=== PATIENT | male | born 1970 | race Caucasian/White ===

== ENCOUNTER 2021-02-23 08:17 | Emergency (ER) | payer OTHER ==
[2021-02-23 08:21] VITALS: RESP 18
[2021-02-23] MEDS ORDERED: KETOROLAC 15 MG/ML 1 ML VIAL IVP STA (08:34)
[2021-02-23] MEDS ORDERED: SODIUM CHLORIDE 0.9% 1,000 ML IV STA (08:34)
[2021-02-23] MEDS ORDERED: ONDANSETRON 4 MG/2 ML VIAL IVP STA (08:34)
[2021-02-23 08:58] LABS: Basophils % (A) 0 %; Eosinophils # (A) 0.1 k/uL (0-0.7); Eosinophils % (A) 1 %; HCT 47.3 % (39.0-53.0); HGB 16.7 gm/dL (13.0-17.5); Lymphocytes # (A) 1.3 k/uL (1.0-4.8); Lymphocytes % (A) 12 %; MCHC 35.3 g/dL (31.0-37.0); MCV 87.9 fL (80.0-100.0); Mean Platelet Volume 7.6; Monocytes # (A) 0.7 k/uL (0-1.0); Monocytes % (A) 6 %; Neutrophils # (A) 8.9 k/uL (1.3-7.7); Neutrophils % (A) 80 %; Platelet Count 196 k/uL (150-450); RBC 5.39 m/uL (4.30-5.90); RDW 12.7 % (11.5-15.5); WBC 11.1 k/uL (3.8-10.6)
[2021-02-23 09:07] LABS: Albumin 4.3 g/dL (3.5-5.0); Calcium 9.6 mg/dL (8.4-10.2); Potassium 4.8 mmol/L (3.5-5.1); Total Bilirubin 1.2 mg/dL (0.2-1.3); Total Protein 7.5 g/dL (6.3-8.2)
--- NOTE | 2021-02-23 09:50 | CT ---
EXAMINATION TYPE: CT abdomen pelvis w con DATE OF EXAM: 02/23/2021 COMPARISON: None HISTORY: Right sided flank pain with nausea and constipation for [address] DLP: 1509.2 mGycm Automated exposure control for dose reduction was used. CONTRAST: CT scan of the abdomen pelvis is performed with IV Contrast, patient injected with 100 mL of Isovue 3 00. FINDINGS- LUNG BASES-subsegmental changes at both lung bases most typical of atelectasis. 3 mm right lower lobe nodule seen 2 small to characterize. Trace of pericardial fluid noted. LIVER/GB-low attenuation in the liver is nonspecific but most typical of hepatic steatosis. PANCREAS- No gross abnormality is seen. SPLEEN- No gross abnormality is seen. ADRENALS- No gross abnormality is seen. KIDNEYS/BLADDER-there is mild right hydronephrosis with a right renal pelvic calcifications seen keila uring 6 mm. Additional 6 mm lower pole right renal calcification noted. Left kidney demonstrates no e vidence of hydronephrosis. Bladder wall mildly thickened likely related to incomplete distention and there is heterogeneous pattern to the prostate and seminal vesicles which could be correlated clinica lly. Subcentimeter hypodensity within the right kidney too small to characterize.. BOWEL-bowel gas pattern is nonspecific with no obstruction. Appendix not identified with certainty. N o inflammatory changes noted in the right lower quadrant.. LYMPH NODES- No greater than 1cm abdominal or pelvic lymph nodes areappreciated. OSSEOUS STRUCTURES-hypertrophic and degenerative changes of the spine. OTHER- aorta of normal caliber. IMPRESSION- 1. Mild right hydronephrosis secondary to a right UPJ calcification measuring 6 mm. Additional 6 mm l ower pole right renal calculus. There is also reduced enhancement of the right kidney relative to the left which may be secondary to obstructive nephropathy. Correlate clinically. 2. Prostate and seminal vesicles are somewhat lobulated and heterogeneous correlate clinically. 3. Hepatic steatosis.
--- NOTE | 2021-02-23 10:11 | ED ---
General Adult HPI - General Chief complaint: Dizziness Stated complaint: lower back pain, dizziness Time Seen by Provider: 02/23/21 08:23 Source: patient, RN notes reviewed Mode of arrival: ambulatory Limitations: no limitations - History of Present Illness Initial comments: 50-year-old male presents emergency department tingling right flank pain. Desirae ent states that since she days ago states it's not getting any better. She states she started feeling nauseated, lightheaded from the pain. Patient states that he's never had any like this before states pain really does not move anywhere daily worse with certain movements. No chest pain shortness breath no current blurred vision or any focal weakness. No dysuria no hematuria no diarrhea no constipation - Related Data Home Medications Medication Instructions Recorded Confirmed Colchicine [Colcrys] 0.6 mg PO BID 02/23/21 02/23/21 Previous Rx's Medication Instructions Recorded Ketorolac [Toradol] 10 mg PO Q8HR #15 tab 02/23/21 Ondansetron Odt [Zofran Odt] 4 mg PO Q8HR PRN #10 tab 02/23/21 Tamsulosin [Flomax] 0.4 mg PO DAILY #7 cap 02/23/21 Allergies Allergy/AdvReac Type Severity Reaction Status Date / Time No Known Allergies Allergy Verified 02/23/21 09:59 Review of Systems ROS Statement: Those systems with pertinent positive or pertinent negative responses have been documented in the HPI. ROS Other: All systems not noted in ROS Statement are negative. Past Medical History Additional Past Medical History / Comment(s): gout History of Any Multi-Drug Resistant Organisms: None Reported Past Surgical History: Orthopedic Surgery Past Psychological History: No Psychological Hx Reported Smoking Status: Never smoker Past Alcohol Use History: Occasional Past Drug Use History: None Reported General Exam Limitations: no limitations General appearance: alert, in no apparent distress Head exam: Present: atraumatic, normocephalic, normal inspection Eye exam: Present: normal appearance, PERRL, EOMI. Absent: scleral icterus, conjunctival injection, periorbital swelling Respiratory exam: Present: normal lung sounds bilaterally. Absent: respiratory distress, wheezes, rales, rhonchi, stridor Cardiovascular Exam: Present: regular rate, normal rhythm, normal heart sounds. Absent: systolic murmur, diastolic murmur, rubs, gallop, clicks GI/Abdominal exam: Present: soft, normal bowel sounds. Absent: distended, tenderness, guarding, rebound, rigid Back exam: Present: CVA tenderness (R). Absent: CVA tenderness (L) Neurological exam: Present: alert, oriented X3, CN II-XII intact Course Vital Signs 02/23/21 02/23/21 08:18 10:10 Temperature 99.2 F 99 F Pulse Rate 90 64 Respiratory 18 18 Rate Blood Pressure 164/105 161/67 O2 Sat by Pulse 96 98 Oximetry Medical Decision Making - Medical Decision Making 50-year-old male presented for right flank pain. Patient patient has evidence of a 6 mm UPJ stone. Patient will follow-up with urology. Patient's pain is controlled. - Lab Data Result diagrams: 02/23/21 08:43 02/23/21 08:43 Lab Results 02/23/21 02/23/21 02/23/21 Range/Units 08:43 08:43 08:43 WBC 11.1 H (3.8-10.6) k/uL RBC 5.39 (4.30-5.90) m/uL Hgb 16.7 (13.0-17.5) gm/dL Hct 47.3 (39.0-53.0) % MCV 87.9 (80.0-100.0) fL MCH 31.0 (25.0-35.0) pg MCHC 35.3 (31.0-37.0) g/dL RDW 12.7 (11.5-15.5) % Plt Count 196 (150-450) k/uL MPV 7.6 Neutrophils % 80 % Lymphocytes % 12 % Monocytes % 6 % Eosinophils % 1 % Basophils % 0 % Neutrophils # 8.9 H (1.3-7.7) k/uL Lymphocytes # 1.3 (1.0-4.8) k/uL Monocytes # 0.7 (0-1.0) k/uL Eosinophils # 0.1 (0-0.7) k/uL Basophils # 0.0 (0-0.2) k/uL Sodium 135 L (137-145) mmol/L Potassium 4.8 (3.5-5.1) mmol/L Chloride 103 (98-107) mmol/L Carbon Dioxide 25 (22-30) mmol/L Anion Gap 7 mmol/L BUN 18 (9-20) mg/dL Creatinine 1.56 H (0.66-1.25) mg/dL Est GFR (CKD-EPI)AfAm 58 (>60 ml/min/1.73 sqM) Est GFR (CKD-EPI)NonAf 50 (>60 ml/min/1.73 sqM) Glucose 131 H (74-99) mg/dL Plasma Lactic Acid Renato (0.7-2.0) mmol/L Calcium 9.6 (8.4-10.2) mg/dL Total Bilirubin 1.2 (0.2-1.3) mg/dL AST 31 (17-59) U/L ALT 37 (4-49) U/L Alkaline Phosphatase 86 (38-126) U/L Troponin I (0.000-0.034) ng/mL Total Protein 7.5 (6.3-8.2) g/dL Albumin 4.3 (3.5-5.0) g/dL Lipase 95 (23-300) U/L Urine Color Yellow Urine Appearance Clear (Clear) Urine pH 5.5 (5.0-8.0) Ur Specific Ophiem 1.050 H (1.001-1.035) Urine Protein Negative (Negative) Urine Glucose (UA) Negative (Negative) Urine Ketones Negative (Negative) Urine Blood Negative (Negative) Urine Nitrite Negative (Negative) Urine Bilirubin Negative (Negative) Urine Urobilinogen <2.0 (<2.0) mg/dL Ur Leukocyte Esterase Negative (Negative) 02/23/21 02/23/21 Range/Units 08:43 08:43 WBC (3.8-10.6) k/uL RBC (4.30-5.90) m/uL Hgb (13.0-17.5) gm/dL Hct (39.0-53.0) % MCV (80.0-100.0) fL MCH (25.0-35.0) pg MCHC (31.0-37.0) g/dL RDW (11.5-15.5) % Plt Count (150-450) k/uL MPV Neutrophils % % Lymphocytes % % Monocytes % % Eosinophils % % Basophils % % Neutrophils # (1.3-7.7) k/uL Lymphocytes # (1.0-4.8) k/uL Monocytes # (0-1.0) k/uL Eosinophils # (0-0.7) k/uL Basophils # (0-0.2) k/uL Sodium (137-145) mmol/L Potassium (3.5-5.1) mmol/L Chloride (98-107) mmol/L Carbon Dioxide (22-30) mmol/L Anion Gap mmol/L BUN (9-20) mg/dL Creatinine (0.66-1.25) mg/dL Est GFR (CKD-EPI)AfAm (>60 ml/min/1.73 sqM) Est GFR (CKD-EPI)NonAf (>60 ml/min/1.73 sqM) Glucose (74-99) mg/dL Plasma Lactic Acid Renato 1.0 (0.7-2.0) mmol/L Calcium (8.4-10.2) mg/dL Total Bilirubin (0.2-1.3) mg/dL AST (17-59) U/L ALT (4-49) U/L Alkaline Phosphatase (38-126) U/L Troponin I <0.012 (0.000-0.034) ng/mL Total Protein (6.3-8.2) g/dL Albumin (3.5-5.0) g/dL Lipase (23-300) U/L Urine Color Urine Appearance (Clear) Urine pH (5.0-8.0) Ur Specific Ophiem (1.001-1.035) Urine Protein (Negative) Urine Glucose (UA) (Negative) Urine Ketones (Negative) Urine Blood (Negative) Urine Nitrite (Negative) Urine Bilirubin (Negative) Urine Urobilinogen (<2.0) mg/dL Ur Leukocyte Esterase (Negative) Disposition Clinical Impression: Right kidney stone Disposition: HOME SELF-CARE Condition: Stable Instructions (If sedation given, give patient instructions): Kidney Stones (ED) Additional Instructions: Please return to the Emergency Department if symptoms worsen or any other concerns. Prescriptions: Tamsulosin [Flomax] 0.4 mg PO DAILY #7 cap Ketorolac [Toradol] 10 mg PO Q8HR #15 tab Ondansetron Odt [Zofran Odt] 4 mg PO Q8HR PRN #10 tab PRN Reason: Nausea Is patient prescribed a controlled substance at d/c from ED?: No Referrals: Domenica Pryor DO [Primary Care Provider] - 1-2 days Beau Herrera MD [STAFF PHYSICIAN] - 1-2 days Time of Disposition: 11:03
[2021-02-23] MEDS ORDERED: HYDROmorphone 0.5 MG/0.5 ML SYRINGE IVP STA (10:16)
[2021-02-23 10:26] LABS: Appearance,Urine Clear (Clear); Bilirubin,Urine Negative (Negative); Blood,Urine Negative (Negative); Color,Urine Yellow; Glucose,Urine (UA) Negative (Negative); Ketones,Urine Negative (Negative); Leukocyte Esterase,Urine Negative (Negative); Nitrite,Urine Negative (Negative); PH, Urine 5.5 (5.0-8.0); Protein,Urine Negative (Negative); Urobilinogen,Urine <2.0 mg/dL (<2.0)
[2021-02-23] MEDS ORDERED: TAMSULOSIN 0.4 MG CAP.ER.24H PO STA (10:40)
[2021-02-23] MEDS ORDERED: ACET/COD 300 MG/30 MG STARTER PACK 6 TAB BTL PO STA (11:04)
[2021-02-23 11:18] VITALS: BP 145/94; PULSE 82; TEMP 99.5
== END 2021-02-23 11:18 | disposition home or self-care (01) ==
LOC: EC 08:17
DX: N20.0 Calculus of kidney (principal)
CPT/HCPCS: 99284; 96374; 96375 ×2; 96361; 36415; 93005; 80053; 83605; 83690; 84484; 85025; 81003; 74177; J2405; J1885; J1170; Q9967

== ENCOUNTER 2021-02-26 14:09 | Day surgery (SDC) | payer OTHER ==
[2021-02-25 13:27] VITALS: BMI 36.5
--- NOTE | 2021-02-26 08:56 | P.HPIHPCON ---
History of Present Illness H&P Date: 02/26/21 Chief Complaint: right sided ureteral stone This is a 50-year-old male with history of right-sided ureteral stent. CT was reviewed which showed evidence of two 6 mm right-sided proximal stones, an additional 6 mm right lower pole stone. Discussed with him given the presence of 2 proximal stones, and the size of the stone the chance of spontaneous passage is low. Discussed with him given that he has 2 stones ureteroscopy would be more preferable than ESWL. Discussed with him risk of ureteroscopy includes but not limited to bleeding, infection, injury to ureter, discussed with him if the stones are impacted then this will be staged procedure. And we will only be able to proceed with stent placement at this setting. Discussed with him risk from anesthesia. He understood all the risk and agreed to proceed with right-sided ureteroscopy, with holmium laser lithotripsy, stone basketing and stent insertion Consent for Procedure: I have explained the operation/procedure to the patient, including the risks, benefits, side effects, alternative therapies (including not receiving the proposed treatment or service), the likelihood of the patient achieving his/her goals, and potential recuperation problems for the procedure/sedation/analgesia, as well as any blood products, if indicated. I also explained to the patient the risks, benefits and side effects of the alternatives, as well as the risks related to not receiving the proposed procedure, care, treatment, or services. Past Medical History Past Medical History: Sleep Apnea/CPAP/BIPAP Additional Past Medical History / Comment(s): gout, kidney stones, History of Any Multi-Drug Resistant Organisms: None Reported Past Surgical History: Orthopedic Surgery, Tonsillectomy Additional Past Surgical History / Comment(s): ACL surgery left knee Past Anesthesia/Blood Transfusion Reactions: No Reported Reaction Smoking Status: Never smoker - Past Family History Mother Family Medical History: Cancer Additional Family Medical History / Comment(s): colon Medications and Allergies Home Medications Medication Instructions Recorded Confirmed Type Ketorolac [Toradol] 10 mg PO Q8HR #15 tab 02/23/21 02/25/21 Rx Ondansetron Odt [Zofran Odt] 4 mg PO Q8HR PRN #10 tab 02/23/21 02/25/21 Rx Tamsulosin [Flomax] 0.4 mg PO DAILY #7 cap 02/23/21 02/25/21 Rx allopurinoL [Zyloprim] 200 mg PO BID 02/25/21 02/25/21 History Allergies Allergy/AdvReac Type Severity Reaction Status Date / Time No Known Allergies Allergy Verified 02/25/21 13:19 Surgical - Exam - General well developed, well nourished, moderate pain - Eyes PERRL, normal ocular movement - ENT normal nares, normal mucosa - Respiratory normal expansion, normal respiratory effort - Psychiatric oriented to time, oriented to person, oriented to place Assessment and Plan Assessment: Or for right-sided ureteroscopy, with holmium laser, stone basketing and stent placement
[~2021-02-26 14:09] MED LIST: DEXAMETHASONE SOD PHOSPHATE 4 MG/ML 1 ML VIAL IV ONE; LACTATED RINGERS 1,000 ML IV SCH; LIDOCAINE 1% (10MG/ML) FOR IV START INTRADERMA PRN; ONDANSETRON 4 MG/2 ML VIAL IVP ONE
--- NOTE | 2021-02-26 14:38 | XR ---
EXAMINATION TYPE: XR KUB DATE OF EXAM: 02/26/2021 COMPARISON: None INDICATION: Preop cystoscopy TECHNIQUE: Single view abdomen frontal supine view FINDINGS: There is a normal bowel gas pattern. Psoas margins are normal. No organomegaly is present. There is a 0.4 cm calcification within the left hemipelvis. IMPRESSION: 1. 0.4 cm calcification inferior left hemipelvis. Phlebolith and distal ureteral stone to BE consider ed.
[2021-02-26] MEDS ORDERED: ONDANSETRON 4 MG/2 ML VIAL ONE (14:50)
[2021-02-26 15:02] VITALS: TEMP 99.1
[2021-02-26] MEDS ORDERED: MIDAZOLAM 2 MG/2 ML VIAL ONE (15:08)
[2021-02-26] MEDS ORDERED: SUCCINYLCHOLINE CHLORIDE 100 MG/5 ML SYR IV ONE (15:08)
[2021-02-26] MEDS ORDERED: KETOROLAC 15 MG/ML 1 ML VIAL ONE (15:08)
[2021-02-26] MEDS ORDERED: PROPOFOL 10 MG/ML 20 ML VIAL IV ONE (15:08)
[2021-02-26] MEDS ORDERED: fentaNYL (PF) 50 MCG/ML 2 ML AMP ONE (15:08)
[2021-02-26] MEDS ORDERED: LIDOCAINE 1% INJ 10MG/ML (20 ML MDV) ONE (15:08)
[2021-02-26] MEDS ORDERED: IOPAMIDOL-370 50ML BTL MISCELLANE ONE (15:34)
--- NOTE | 2021-02-26 16:42 | P.OP ---
Date of Procedure: 02/26/21 Preoperative Diagnosis: Right ureteral, renal calculi Postoperative Diagnosis: Same Procedure(s) Performed: Cystoscopy, right retrograde pyelogram, ureteroscopy, holmium laser lithotripsy, stone basketing and stent insertion Implants: 6-Lao by 26 cm stent left on a string in the right ureter Anesthesia: JEAN CLAUDE Surgeon: Tj Perez Estimated Blood Loss (ml): 5 Pathology: other (right ureteral calculi) Condition: stable Disposition: PACU Indications for Procedure: This is a 50-year-old male with history of right-sided ureteral stent. CT was reviewed which showed evidence of two 6 mm right-sided proximal stones, an additional 6 mm right lower pole stone. Discussed with him given the presence of 2 proximal stones, and the size of the stone the chance of spontaneous passage is low. Discussed with him given that he has 2 stones ureteroscopy would be more preferable than ESWL. Discussed with him risk of ureteroscopy includes but not limited to bleeding, infection, injury to ureter, discussed with him if the stones are impacted then this will be staged procedure. And we will only be able to proceed with stent placement at this setting. Discussed with him risk from anesthesia. He understood all the risk and agreed to proceed with right-sided ureteroscopy, with holmium laser lithotripsy, stone basketing and stent insertion Operative Findings: Two right-sided proximal stone, an additional stone within the renal pelvis Description of Procedure: Patient was brought to the operating room, general anesthesia was induced. He was prepped and draped in sterile fashion and placed in dorsal lithotomy position. A cystoscopy fitted with a 21-Lao sheath was inserted per urethra, cystoscopy was performed which showed no abnormality within the bladder. Attention was then carried to the right ureteral orifice which was intubated with a 6 Fr open-ended catheter, retrograde Pyelogram was performed which showed a filling defect in the proximal ureter, with moderate hydronephrosis. Next a sensor wire was advanced through the catheter and the catheter was withdrawn with the wire in place., The wire was advanced into the renal pelvis. Next a 1113 Lao access sheath was passed under fluoroscopy over the wire into the proximal ureter. Next flexibile ureteroscope was inserted through the access sheath, renoscopy was performed which showed a stone within the proximal ureter, the stone was lasered using the holmium laser, sizable fragments were removed using the stone basket. At this time the ureteroscope was advanced further and additional stone was encountered in the proximal ureter which was dusted using the holmium laser. There was no sizable residual fragments left. At this time the ureteroscope was advanced further into the renal pelvis which showed a large stone. Using the holmium laser the stone was dusted into small fragments, all fragments were smaller than the diameter of the wire. Repeat renoscopy showed no sizable fragments or injury to the kidney. Pullback ureteroscopy showed no evidence of ureteral fragments or injury to the ureter, there was edema at the site of stone impaction in proximal ureter. As a ureteroscope was withdrawn the wire was advanced through. Next ureteral stent was passed over the wire, the proximal curl was visualized on fluoroscopy and distal curl was visualized using the cystoscope. The bladder was emptied at the end of the case. The stent was left on a string and taped to the patient penis. Patient tolerated the procedure well was taken to PACU in stable condition
[2021-02-26 17:02] VITALS: RESP 16
[2021-02-26 18:25] VITALS: PULSE 75
[2021-02-26 18:26] VITALS: BP 123/81
--- NOTE | 2021-02-27 09:15 | FL ---
EXAMINATION TYPE: FL urography retrograde DATE OF EXAM: 02/26/2021 FLUOROSCOPY Fluoroscopy time of 1 minute 9 seconds was used during right-sided lithotripsy. 5 image/s document/s the procedure.
== END 2021-02-26 18:35 | disposition home or self-care (01) ==
LOC: OR 14:09
PROVIDERS: ATTEND Urology
DX: N20.0 Calculus of kidney (principal); E78.5 Hyperlipidemia, unspecified; G47.33 Obstructive sleep apnea (adult) (pediatric)
CPT/HCPCS: 52356; 76000; 82365; 74420; 74018; C2625; C1769; J2250; J1100; J0690; J2405; J2001; J3010; J1885; J0330; J2704; Q9967

== ENCOUNTER 2023-03-02 18:36 | Observation (INO) | payer OTHER ==
[2023-03-02] MEDS ORDERED: SODIUM CHLORIDE 0.9% 1,000 ML IV STA (19:46)
[2023-03-02] MEDS ORDERED: KETOROLAC 15 MG/ML 1 ML VIAL IVP STA (19:46)
[2023-03-02] MEDS ORDERED: ONDANSETRON 4 MG/2 ML VIAL IVP STA (19:47)
[2023-03-02 20:17] LABS: Basophils % (A) 0 %; Eosinophils # (A) 0.2 k/uL (0-0.7); Eosinophils % (A) 2 %; HCT 38.3 % (39.0-53.0); HGB 13.3 gm/dL (13.0-17.5); Lymphocytes # (A) 1.6 k/uL (1.0-4.8); Lymphocytes % (A) 17 %; MCHC 34.8 g/dL (31.0-37.0); MCV 86.2 fL (80.0-100.0); Monocytes # (A) 0.7 k/uL (0-1.0); Monocytes % (A) 7 %; Neutrophils # (A) 6.9 k/uL (1.3-7.7); Neutrophils % (A) 73 %; Platelet Count 152 k/uL (150-450); RBC 4.45 m/uL (4.30-5.90); RDW 12.7 % (11.5-15.5); WBC 9.4 k/uL (3.8-10.6)
[2023-03-02 20:34] LABS: ALT 35 U/L (4-49); AST 33 U/L (17-59); African American GFR (CKD) 22 (>60 ml/min/1.73 sqM); Albumin 3.7 g/dL (3.5-5.0); Alkaline Phosphatase 69 U/L (38-126); Anion Gap 11 mmol/L; Blood Urea Nitrogen 32 mg/dL (9-20); Calcium 8.9 mg/dL (8.4-10.2); Carbon Dioxide 20 mmol/L (22-30); Chloride 105 mmol/L (98-107); Glucose 148 mg/dL (74-99); Lipase 308 U/L (23-300); Non-African American GFR(CKD) 19 (>60 ml/min/1.73 sqM); Potassium 3.9 mmol/L (3.5-5.1); Sodium 136 mmol/L (137-145); Total Bilirubin 0.5 mg/dL (0.2-1.3)
[2023-03-02 21:16] LABS: Appearance,Urine Clear (Clear); Bilirubin,Urine Negative (Negative); Blood,Urine Large (Negative); Color,Urine Colorless; Glucose,Urine (UA) Negative (Negative); Ketones,Urine Negative (Negative); Leukocyte Esterase,Urine Small (Negative); Nitrite,Urine Negative (Negative); PH, Urine 5.5 (5.0-8.0); Protein,Urine Negative (Negative); RBC,Urine 38 /hpf (0-5); Specific Gravity,Urine 1.007 (1.001-1.035); Urobilinogen,Urine <2.0 mg/dL (<2.0); WBC,Urine 6 /hpf (0-5)
--- NOTE | 2023-03-02 21:45 | CT ---
EXAMINATION TYPE: CT abdomen pelvis wo con DATE OF EXAM: 03/02/2023 COMPARISON: 02/23/2021 HISTORY: 52-year-old male left flank pain, hx of stones CT DLP: 1075.4. mGycm. Automated exposure control for dose reduction was used. TECHNIQUE: Contiguous axial scanning of the abdomen and pelvis without IV contrast. Coronal and sagit negrito reconstructions performed. FINDINGS: LUNG BASES: No significant abnormality is appreciated. LIVER/GB: Mild hepatomegaly at 18.6 cm with diffuse low attenuation. No abnormal gallbladder distenti on. PANCREAS: No significant abnormality is seen. SPLEEN: No significant abnormality is seen. ADRENALS: No significant abnormality is seen. KIDNEYS: Numerous punctate 3 mm and smaller bilateral renal calculi. There is moderate right-sided hy dronephrosis and mild left-sided hydronephrosis. On the right, there is a 4 cm length numerous calcif ications measuring up to 8 mm, refer to sagittal image 70 and axial image 123. On the left, there is a 4 mm stone at the upper left ureter, axial image 83. Prominent tracking edema down the left retroperitoneum. BOWEL: Small hiatal hernia. No dilated small bowel, free fluid, free air. Scattered mild stool. Redun dant sigmoid colon. No pericolonic inflammatory change. LYMPH NODES: No greater than 1cm abdominal or pelvic lymph nodes are appreciated. PELVIS: Small pelvic phleboliths. Bladder under distended. OSSEOUS STRUCTURES: Moderate degenerative disc disease L5-S1. OTHER: Mild generalized anasarca change. IMPRESSION: 1. Moderate right-sided hydronephrosis with a string of calcifications measuring up to 8 mm spanning 4 cm long in the distal right ureter. 2. Mild left-sided hydronephrosis with a 4 mm stone in the upper left ureter. 3. Additional punctate bilateral renal calculi measuring up to 3 mm. 4. Hepatomegaly at 18.6 cm with at least moderate hepatic steatosis. 5. Small hiatal hernia. Mild generalized anasarca change.
[2023-03-02] MEDS ORDERED: HYDROmorphone 0.5 MG/0.5 ML SYRINGE IVP PRN (23:06)
[2023-03-02] MEDS ORDERED: NALOXONE 0.4 MG/ML 1 ML VIAL IV PRN (23:20)
[2023-03-02] MEDS: SODIUM CHLORIDE 0.9% 1,000 ML IV STA (23:28)
--- NOTE | 2023-03-03 01:19 | ED ---
Abdominal Pain HPI - General Chief Complaint: Abdominal Pain Stated Complaint: back pain Time Seen by Provider: 03/02/23 19:45 Source: patient Mode of arrival: ambulatory Limitations: no limitations - History of Present Illness Initial Comments: Patient is a 52-year-old male who presents the emergency department for back pain. This started yesterday. Patient reports pain in his left back which radiates to his left flank and left abdomen. It is sharp in nature. Patient has history of kidney stones and states this feels similar. He is nauseous no vomiting. No fever or chills. No urinary symptoms. Patient cannot remember his urologist. - Related Data Previous Rx's Medication Instructions Recorded Ibuprofen 600 mg PO Q8H PRN #20 tab 02/26/21 Allergies Allergy/AdvReac Type Severity Reaction Status Date / Time No Known Allergies Allergy Verified 03/02/23 22:16 Review of Systems ROS Statement: Those systems with pertinent positive or pertinent negative responses have been documented in the HPI. ROS Other: All systems not noted in ROS Statement are negative. Past Medical History Past Medical History: Sleep Apnea/CPAP/BIPAP Additional Past Medical History / Comment(s): gout, kidney stones, History of Any Multi-Drug Resistant Organisms: None Reported Past Surgical History: Orthopedic Surgery, Tonsillectomy Additional Past Surgical History / Comment(s): ACL surgery left knee Past Anesthesia/Blood Transfusion Reactions: No Reported Reaction Past Psychological History: No Psychological Hx Reported Smoking Status: Never smoker Past Alcohol Use History: None Reported Past Drug Use History: None Reported - Past Family History Mother Family Medical History: Cancer Additional Family Medical History / Comment(s): colon General Exam Limitations: no limitations General appearance: alert Eye exam: Present: normal appearance, PERRL, EOMI. Absent: scleral icterus, conjunctival injection, periorbital swelling Respiratory exam: Present: normal lung sounds bilaterally. Absent: respiratory distress, wheezes, rales, rhonchi, stridor Cardiovascular Exam: Present: regular rate, normal rhythm, normal heart sounds. Absent: systolic murmur, diastolic murmur, rubs, gallop, clicks GI/Abdominal exam: Present: soft, tenderness (mild LLQ), normal bowel sounds. Absent: distended, guarding, rebound, rigid Back exam: Present: CVA tenderness (L) Neurological exam: Present: alert Psychiatric exam: Present: normal affect, normal mood Skin exam: Present: warm, dry, intact, normal color. Absent: rash Course Vital Signs 03/02/23 03/02/23 03/02/23 19:29 22:01 23:59 Temperature 99.1 F Pulse Rate 61 55 L 55 L Respiratory 18 17 17 Rate Blood Pressure 192/94 175/92 197/105 O2 Sat by Pulse 98 98 97 Oximetry 03/03/23 00:38 Temperature 97.9 F Pulse Rate 58 L Respiratory 18 Rate Blood Pressure 165/86 O2 Sat by Pulse 98 Oximetry Medical Decision Making - Medical Decision Making Was pt. sent in by a medical professional or institution (, PA, TELEPHONE ORDER SUPERVISOR, urgent care, hospital, or halfway...) When possible be specific @ -No Did you speak to anyone other than the patient for history (EMS, parent, family, police, friend...)? What history was obtained from this source @ -No Did you review nursing and triage notes (agree or disagree)? Why? @ -I reviewed and agree with nursing and triage notes Were old charts reviewed (outside hosp., previous admission, EMS record, old EKG, old radiological studies, urgent care reports/EKG's, halfway records)? Report findings @ -No old charts were reviewed Differential Diagnosis (chest pain, altered mental status, abdominal pain women, abdominal pain men, vaginal bleeding, weakness, fever, dyspnea, syncope, headache, dizziness, GI bleed, back pain, seizure, CVA, palpatations, mental health)? @ Differential Abdominal Pain Men: Appendicitis, cholecystitis, diverticulosis, ischemic bowel, pancreatitis, he patitis, UTI, gastroenteritis, AAA, incarcerated hernia, bowel obstruction, constipation, inflammatory bowel, hepatitis, peptic ulcer disease, splenic infarction, perforated viscus, testicular torsion, this is not meant to be an all-inclusive list EKG interpreted by me (3pts min.). @ -As above X-rays interpreted by me (1pt min.). @ -None done CT interpreted by me (1pt min.). @ -Moderate right-sided hydronephrosis with a string of calcifications measuring up to 8 mm Marion 4 cm long in the distal right ureter. Mild left- sided hydronephrosis with a 4 mm stone in the upper left ureter. Hepatomegaly at 18.6 cm with at least moderate hypoxia steatosis. Small hiatal hernia U/S interpreted by me (1pt. min.). @ -None done What testing was considered but not performed or refused? (CT, X-rays, U/S, labs)? Why? @ -None What meds were considered but not given or refused? Why? @ -None Did you discuss the management of the patient with other professionals (professionals i.e. DrDu, PA, TELEPHONE ORDER SUPERVISOR, lab, RT, psych nurse, social and political studies professor, acquisition specialist, teacher, crime prevention police officer, senior case manager)? Give summary @ -Dr. Perez Was smoking cessation discussed for >3mins.? @ -No Was critical care preformed (if so, how long)? @ -No Were there social determinants of health that impacted care today? How? (Homelessness, low income, unemployed, alcoholism, drug addiction, transportation, low edu. Level, literacy, decrease access to med. care, [facility], rehab)? @ -No Was there de-escalation of care discussed even if they declined (Discuss DNR or withdrawal of care, Hospice)? DNR status @ -No What co-morbidities impacted this encounter? (DM, HTN, Smoking, COPD, CAD, Cancer, CVA, ARF, Chemo, Hep., AIDS, mental health diagnosis, sleep apnea, morbid obesity)? @ -None Was patient admitted / discharged? Hospital course, mention meds given and route, prescriptions, significant lab abnormalities, going to OR and other pertinent info. @ -Admitted for bilateral kidney stone and ANANTH. Patient NPO at midnight Dr. Conway accept admission. Urology on consult Undiagnosed new problem with uncertain prognosis? @ -No Drug Therapy requiring intensive monitoring for toxicity (Heparin, Nitro, Insulin, Cardizem)? @ -No Were any procedures done? @ -No Diagnosis/symptom? @ -Kidney stone Acute, or Chronic, or Acute on Chronic? @ -Acute Uncomplicated (without systemic symptoms) or Complicated (systemic symptoms)? @ -Uncomplicated Side effects of treatment? @ -No Exacerbation, Progression, or Severe Exacerbation? @ -No Poses a threat to life or bodily function? How? (Chest pain, USA, ID, pneumonia, PE, COPD, DKA, ARF, appy, cholecystitis, CVA, Diverticulitis, Homicidal, Suicidal, threat to staff... and all critical care pts) @ -No Dr. Aggarwal is my attending - Lab Data Result diagrams: 03/02/23 20:04 03/02/23 20:04 Lab Results 03/02/23 03/02/23 03/02/23 Range/Units 20:04 20:04 20:04 WBC 9.4 (3.8-10.6) k/uL RBC 4.45 (4.30-5.90) m/uL Hgb 13.3 (13.0-17.5) gm/dL Hct 38.3 L (39.0-53.0) % MCV 86.2 (80.0-100.0) fL MCH 30.0 (25.0-35.0) pg MCHC 34.8 (31.0-37.0) g/dL RDW 12.7 (11.5-15.5) % Plt Count 152 (150-450) k/uL MPV 8.0 Neutrophils % 73 % Lymphocytes % 17 % Monocytes % 7 % Eosinophils % 2 % Basophils % 0 % Neutrophils # 6.9 (1.3-7.7) k/uL Lymphocytes # 1.6 (1.0-4.8) k/uL Monocytes # 0.7 (0-1.0) k/uL Eosinophils # 0.2 (0-0.7) k/uL Basophils # 0.0 (0-0.2) k/uL Sodium 136 L (137-145) mmol/L Potassium 3.9 (3.5-5.1) mmol/L Chloride 105 (98-107) mmol/L Carbon Dioxide 20 L (22-30) mmol/L Anion Gap 11 mmol/L BUN 32 H (9-20) mg/dL Creatinine 3.41 H (0.66-1.25) mg/dL Est GFR (CKD-EPI)AfAm 22 (>60 ml/min/1.73 sqM) Est GFR (CKD-EPI)NonAf 19 (>60 ml/min/1.73 sqM) Glucose 148 H (74-99) mg/dL Plasma Lactic Acid Renato (0.7-2.0) mmol/L Calcium 8.9 (8.4-10.2) mg/dL Total Bilirubin 0.5 (0.2-1.3) mg/dL AST 33 (17-59) U/L ALT 35 (4-49) U/L Alkaline Phosphatase 69 (38-126) U/L Total Protein 7.0 (6.3-8.2) g/dL Albumin 3.7 (3.5-5.0) g/dL Lipase 308 H (23-300) U/L Urine Color Colorless Urine Appearance Clear (Clear) Urine pH 5.5 (5.0-8.0) Ur Specific [place] 1.007 (1.001-1.035) Urine Protein Negative (Negative) Urine Glucose (UA) Negative (Negative) Urine Ketones Negative (Negative) Urine Blood Large H (Negative) Urine Nitrite Negative (Negative) Urine Bilirubin Negative (Negative) Urine Urobilinogen <2.0 (<2.0) mg/dL Ur Leukocyte Esterase Small H (Negative) Urine RBC 38 H (0-5) /hpf Urine WBC 6 H (0-5) /hpf 03/02/23 Range/Units 20:04 WBC (3.8-10.6) k/uL RBC (4.30-5.90) m/uL Hgb (13.0-17.5) gm/dL Hct (39.0-53.0) % MCV (80.0-100.0) fL MCH (25.0-35.0) pg MCHC (31.0-37.0) g/dL RDW (11.5-15.5) % Plt Count (150-450) k/uL MPV Neutrophils % % Lymphocytes % % Monocytes % % Eosinophils % % Basophils % % Neutrophils # (1.3-7.7) k/uL Lymphocytes # (1.0-4.8) k/uL Monocytes # (0-1.0) k/uL Eosinophils # (0-0.7) k/uL Basophils # (0-0.2) k/uL Sodium (137-145) mmol/L Potassium (3.5-5.1) mmol/L Chloride (98-107) mmol/L Carbon Dioxide (22-30) mmol/L Anion Gap mmol/L BUN (9-20) mg/dL Creatinine (0.66-1.25) mg/dL Est GFR (CKD-EPI)AfAm (>60 ml/min/1.73 sqM) Est GFR (CKD-EPI)NonAf (>60 ml/min/1.73 sqM) Glucose (74-99) mg/dL Plasma Lactic Acid Renato 0.8 (0.7-2.0) mmol/L Calcium (8.4-10.2) mg/dL Total Bilirubin (0.2-1.3) mg/dL AST (17-59) U/L ALT (4-49) U/L Alkaline Phosphatase (38-126) U/L Total Protein (6.3-8.2) g/dL Albumin (3.5-5.0) g/dL Lipase (23-300) U/L Urine Color Urine Appearance (Clear) Urine pH (5.0-8.0) Ur Specific [place] (1.001-1.035) Urine Protein (Negative) Urine Glucose (UA) (Negative) Urine Ketones (Negative) Urine Blood (Negative) Urine Nitrite (Negative) Urine Bilirubin (Negative) Urine Urobilinogen (<2.0) mg/dL Ur Leukocyte Esterase (Negative) Urine RBC (0-5) /hpf Urine WBC (0-5) /hpf Disposition Clinical Impression: Kidney stone, ANANTH (acute kidney injury) Disposition: [facility] Condition: Fair
[2023-03-03] MEDS: SODIUM CHLORIDE 0.9% 1,000 ML IV STA (02:27)
[2023-03-03] MEDS: ONDANSETRON 4 MG/2 ML VIAL IVP PRN ×2 (02:32→10:09)
--- NOTE | 2023-03-03 04:29 | P.HPIM ---
History of Present Illness H&P Date: 03/03/23 Chief Complaint: bilateral flank pain 52-year-old male with history of kidney stones He comes in with 2 day history of bilateral flank pain that started on Tuesday he described it as severe colicky pain radiates to the lower abdomen associated with feeling nauseous and vomiting reports some low-grade fever and some hematuria he denies any traumas injuries are unsanitary food she reports that the pain was similar to an episode of kidney stone that he had 2 years ago. Patient denies any GI bleeding denies being on any blood thinners denies any diarrhea denies any tobacco smoking illicit drugs or heavy alcohol. review of systems Pertinent positives as noted in HPI. All other systems were reviewed and are negative on exam Constitutional: No acute distress, conversant, pleasant Eyes: Anicteric sclerae, moist conjunctiva, Pupils equal round reactive to light ENMT: NC/AT Oropharynx clear, no erythema, or exudates Neck: Supple, no masses, or JVD No carotid bruits No thyromegaly Lungs: Clear to auscultation Clear to percussion Normal respiratory effort, no accessory muscle use Cardiovascular: Heart regular in rate and rhythm, No murmurs, gallops, or rubs No peripheral edema Abdominal: Soft Tenderness to palpation of the bilateral costovertebral angles no guarding, rebound or rigidity Abdomen moving with respiration Normoactive bowel sounds No hepatomegaly, No splenomegaly No palpable mass No abdominal wall hernia noted Skin: Normal temperature, tone, texture, turgor No induration No subcutaneous nodules No rash, lesions No ulcers Extremities: No digital cyanosis No clubbing Pedal pulses intact and symmetrical Radial pulses intact and symmetrical No calf tenderness Psychiatric: Alert and oriented to person, place and time Appropriate affect fair judgement Neuro Muscles Strength 5/5 in all 4 extremities Sensation to light touch grossly present throughout Cranial nerves II-XII grossly intact Lymphatics: no palpable cervical or supraclavicular lymph nodes Past Medical History Past Medical History: Sleep Apnea/CPAP/BIPAP Additional Past Medical History / Comment(s): gout, kidney stones, History of Any Multi-Drug Resistant Organisms: None Reported Past Surgical History: Orthopedic Surgery, Tonsillectomy Additional Past Surgical History / Comment(s): ACL surgery left knee Past Anesthesia/Blood Transfusion Reactions: No Reported Reaction Past Psychological History: No Psychological Hx Reported Smoking Status: Never smoker Past Alcohol Use History: None Reported Past Drug Use History: None Reported - Past Family History Mother Family Medical History: Cancer Additional Family Medical History / Comment(s): colon Medications and Allergies Home Medications Medication Instructions Recorded Confirmed Type Ibuprofen 600 mg PO Q8H PRN #20 tab 02/26/21 03/02/23 Rx Allergies Allergy/AdvReac Type Severity Reaction Status Date / Time No Known Allergies Allergy Verified 03/02/23 22:16 Physical Exam Vitals: Vital Signs Temp Pulse Pulse Resp BP BP Pulse Ox 03/03/23 00:38 97.9 F 58 L 18 165/86 98 03/03/23 00:35 98.0 F 57 L 18 177/91 96 03/02/23 23:59 55 L 17 197/105 97 03/02/23 22:01 55 L 17 175/92 98 03/02/23 19:29 99.1 F 61 18 192/94 98 Intake and Output 03/02/23 03/02/23 03/03/23 14:59 22:59 06:59 Other: Weight 108.862 kg 108.862 kg Results CBC & Chem 7: 03/02/23 20:04 03/02/23 20:04 Labs: Abnormal Lab Results - Last 24 Hours (Table) 03/02/23 03/02/23 03/02/23 Range/Units 20:04 20:04 20:04 Hct 38.3 L (39.0-53.0) % Sodium 136 L (137-145) mmol/L Carbon Dioxide 20 L (22-30) mmol/L BUN 32 H (9-20) mg/dL Creatinine 3.41 H (0.66-1.25) mg/dL Glucose 148 H (74-99) mg/dL Lipase 308 H (23-300) U/L Urine Blood Large H (Negative) Ur Leukocyte Esterase Small H (Negative) Urine RBC 38 H (0-5) /hpf Urine WBC 6 H (0-5) /hpf Thrombosis Risk Factor Assmnt - Choose All That Apply Any of the Below Risk Factors Present?: Yes Each Factor Represents 1 point: Age 41-60 years, Obesity (BMI >25) Other Risk Factors: No Other congenital or acquired thrombophilia - If yes, enter type in comment: No Thrombosis Risk Factor Assessment Total Risk Factor Score: 2 Thrombosis Risk Factor Assessment Level: Low Risk Assessment and Plan Assessment: 52-year-old male with history of kidney stone coming in with bilateral flank pain with hematuria I discussed the case with the ED doctor and accepted the admission for obstructive uropathy with bilateral kidney stones for urology evaluation with anticipated length of stay more than 2 midnights Obstructive uropathy AK I Bilateral ureteral stones CT imaging showing right hydronephrosis with string-like calcification of 8 mm pending 4 cm to the distal right ureter, mild left sided hydronephrosis with 4 mm stone in the upper proximal left ureter. Incidental finding of hepatomegaly Renal function 32 creatinine 3.4 Sodium 136 potassium 3.9 White count 9.4, hemoglobin 13.3 No fevers Pain control with opiates Zofran when necessary for nausea vomiting IV fluid hydration with normal saline 1 3 mL per hour Monitor urine output Urology consultation Avoid nephrotoxic meds Nothing by mouth after midnight Full code DVT prophylaxis heparin subcu 3 times a day
[2023-03-03] MEDS ORDERED: HYDROmorphone 0.5 MG/0.5 ML SYRINGE IVP STA (05:12)
[2023-03-03] MEDS: HYDROmorphone 0.5 MG/0.5 ML SYRINGE IVP PRN ×2 (07:34→08:55)
[2023-03-03 10:12] VITALS: BMI 36.5
[2023-03-03] MEDS ORDERED: LACTATED RINGERS 1,000 ML IV ONE (13:18)
[2023-03-03] MEDS ORDERED: PROPOFOL 10 MG/ML 20 ML VIAL IV ONE (13:59)
[2023-03-03] MEDS ORDERED: MIDAZOLAM 2 MG/2 ML VIAL ONE (13:59)
[2023-03-03] MEDS ORDERED: fentaNYL (PF) 50 MCG/ML 2 ML AMP ONE (13:59)
[2023-03-03] MEDS ORDERED: LIDOCAINE 2% INJ 20 MG/ML (2 ML VIAL) ONE (13:59)
--- NOTE | 2023-03-03 14:07 | P.GSCN ---
History of Present Illness Consult date: 03/03/23 Reason for Consult: Bilateral ureteral stone History of present illness: This is a 52 yo male that presented to the hospital with left flank pain, associated with nausea and vomiting. He underwent a CT abdomen and pelvis which showed evidence of bilateral ureteral stone, with significant stone burden on the right sided, there were, multiple stone on right. He does have hx of recurrent kidney stone and did require URS with holmium laser. his creat was elevated at 3.4 Review of Systems - Constitutional Denies fever, Denies weight loss - EENT Ears, nose, mouth and throat: Denies dysphagia - Cardiovascular Denies chest pain, Denies shortness of breath - Respiratory Denies cough, Denies 7 - Gastrointestinal Reports abdominal pain, Reports nausea, Reports vomiting - Genitourinary Reports flank pain, Denies dysuria, Denies hematuria Past Medical History Past Medical History: Sleep Apnea/CPAP/BIPAP Additional Past Medical History / Comment(s): gout, kidney stones, History of Any Multi-Drug Resistant Organisms: None Reported Past Surgical History: Orthopedic Surgery, Tonsillectomy Additional Past Surgical History / Comment(s): ACL surgery left knee Past Anesthesia/Blood Transfusion Reactions: No Reported Reaction Past Psychological History: No Psychological Hx Reported Smoking Status: Never smoker Past Alcohol Use History: None Reported Past Drug Use History: None Reported - Past Family History Mother Family Medical History: Cancer Additional Family Medical History / Comment(s): colon Medications and Allergies Home Medications Medication Instructions Recorded Confirmed Type Ibuprofen 600 mg PO Q8H PRN #20 tab 02/26/21 03/02/23 Rx Allergies Allergy/AdvReac Type Severity Reaction Status Date / Time No Known Allergies Allergy Verified 03/02/23 22:16 Surgical - Exam Vital Signs Temp Pulse Resp BP Pulse Ox 99.1 F 61 18 192/94 98 03/02/23 19:29 03/02/23 19:29 03/02/23 19:29 03/02/23 19:29 03/02/23 19:29 - General no distress, severe pain - Eyes normal ocular movement, no pale - ENT normal nares, normal mucosa - Respiratory normal expansion, normal respiratory effort - Abdomen Abdomen: soft, non tender - Psychiatric oriented to time, oriented to person, oriented to place Results - Labs 03/02/23 20:04 03/02/23 20:04 Abnormal Lab Results - Last 24 Hours (Table) 03/02/23 03/02/23 03/02/23 Range/Units 20:04 20:04 20:04 Hct 38.3 L (39.0-53.0) % Sodium 136 L (137-145) mmol/L Carbon Dioxide 20 L (22-30) mmol/L BUN 32 H (9-20) mg/dL Creatinine 3.41 H (0.66-1.25) mg/dL Glucose 148 H (74-99) mg/dL Lipase 308 H (23-300) U/L Urine Blood Large H (Negative) Ur Leukocyte Esterase Small H (Negative) Urine RBC 38 H (0-5) /hpf Urine WBC 6 H (0-5) /hpf Diabetes panel 03/02/23 Range/Units 20:04 Sodium 136 L (137-145) mmol/L Potassium 3.9 (3.5-5.1) mmol/L Chloride 105 (98-107) mmol/L Carbon Dioxide 20 L (22-30) mmol/L BUN 32 H (9-20) mg/dL Creatinine 3.41 H (0.66-1.25) mg/dL Glucose 148 H (74-99) mg/dL Calcium 8.9 (8.4-10.2) mg/dL AST 33 (17-59) U/L ALT 35 (4-49) U/L Alkaline Phosphatase 69 (38-126) U/L Total Protein 7.0 (6.3-8.2) g/dL Albumin 3.7 (3.5-5.0) g/dL Calcium panel 03/02/23 Range/Units 20:04 Calcium 8.9 (8.4-10.2) mg/dL Albumin 3.7 (3.5-5.0) g/dL Pituitary panel 03/02/23 Range/Units 20:04 Sodium 136 L (137-145) mmol/L Potassium 3.9 (3.5-5.1) mmol/L Chloride 105 (98-107) mmol/L Carbon Dioxide 20 L (22-30) mmol/L BUN 32 H (9-20) mg/dL Creatinine 3.41 H (0.66-1.25) mg/dL Glucose 148 H (74-99) mg/dL Calcium 8.9 (8.4-10.2) mg/dL Adrenal panel 03/02/23 Range/Units 20:04 Sodium 136 L (137-145) mmol/L Potassium 3.9 (3.5-5.1) mmol/L Chloride 105 (98-107) mmol/L Carbon Dioxide 20 L (22-30) mmol/L BUN 32 H (9-20) mg/dL Creatinine 3.41 H (0.66-1.25) mg/dL Glucose 148 H (74-99) mg/dL Calcium 8.9 (8.4-10.2) mg/dL Total Bilirubin 0.5 (0.2-1.3) mg/dL AST 33 (17-59) U/L ALT 35 (4-49) U/L Alkaline Phosphatase 69 (38-126) U/L Total Protein 7.0 (6.3-8.2) g/dL Albumin 3.7 (3.5-5.0) g/dL Assessment and Plan Assessment: 52 yo hx of bilateral ureteral stone, and ANANTH. discussed with him given this finding I do recommend proceeding with cystoscopy and bilateral stent insertion. discussed risk, benefit and rationale of doing this -OR for cysto with bilateral stent
[2023-03-03] MEDS ORDERED: ceFAZolin 1,000 MG VIAL IVPB ONE (14:19)
--- NOTE | 2023-03-03 14:51 | FL ---
Intraoperative/procedural fluoroscopic services were provided for bilateral ureteral stents. Total fl uoroscopy time is 2 seconds with a total of 1 submitted image to PACS. Total DAP [id number] [id number]. Plea se see the operative note for further details.
[2023-03-04 08:18] VITALS: BP 148/83; PULSE 61; RESP 18; TEMP 98.9
[2023-03-04 13:09] LABS: HCT 37.8 % (39.6-50.0); HGB 12.5 d/dL (13.0-17.0); MCH 29.1 pg (27.0-32.0); MCHC 33.1 d/dL (32.0-37.0); MCV 88.1 FL (80.0-97.0); Mean Platelet Volume 11.3 FL (9.5-12.2); NRBC Per 100 WBC 0 X 10*3/uL (0.00-0.01); Platelet Count 197 X 10*3/uL (140-440); RBC 4.29 X 10*6/uL (4.40-5.60); RDW 12.6 % (11.5-14.5)
[2023-03-04 13:10] LABS: Basophils # (A) 0.02 X 10*3/uL (0.00-0.10); Basophils % (A) 0.2 %; Eosinophils % (A) 1.2 %; Lymphocytes # (A) 1.92 X 10*3/uL (0.90-5.00); Lymphocytes % (A) 22.6 %; Monocytes # (A) 0.72 X 10*3/uL (0.20-1.00); Monocytes % (A) 8.5 %; Neutrophils # (A) 5.72 X 10*3/uL (1.80-7.70); Neutrophils % (A) 67.3 %
--- NOTE | 2023-03-04 13:11 | P.OP ---
Date of Procedure: 03/04/23 Preoperative Diagnosis: bilateral ureteral stone, bilateral hydronephrosis Postoperative Diagnosis: same Procedure(s) Performed: cystoscopy, bilateral ureteral stents Implants: 6-Bruneian by 26 cm stents in the bilateral ureters Anesthesia: JEAN CLAUDE Surgeon: Tj Perez Estimated Blood Loss (ml): 5 Pathology: none sent Condition: stable Disposition: PACU Indications for Procedure: this is a 52-year-old male with history of bilateral obstructing ureter ureteral stones. Patient presented with flank pain, and acute kidney injury secondary to his ureteral obstruction. Discussed with him given this finding I recommend proceeding with cystoscopy and bilateral stent insertion. risk benefit and rationale of surgery was discussed in details Description of Procedure: patient brought to the operating room, general anesthesia was induced. She was prepped and draped in sterile fashion and placed in dorsal lithotimy position. Cystoscopy fitted with a 21-Bruneian sheath was inserted per urethra, cystoscopy was performed which showed no abnormality within the bladder. Next a sensor wire was advanced up the left ureteral orifice, location of the wire was confirmed on fluoroscopy and was in the renal pelvis. Next a ureteral stent was passed over the wire, the proximal curl was visualized on fluoroscopy and the distal curl was visualized using cystoscope. Hydronephrotic drip was noticed. At this time attention was then carried to the right side. A sensor wire was advanced through the scope and up the right ureter and up into the renal pelvis next ureteral stent was passed over the wire, the proximal curl was visualized on fluoroscopy and the distal curl was visualized using the cystoscope bladder was emptied and the case. Patient tolerated procedure well was taken to recovery in stable condition
--- NOTE | 2023-03-04 13:23 | P.PN ---
Subjective Progress Note Date: 03/04/23 underwent bilateral stent insertion yesterday, doing well. BMP pending this morning Objective - Vital Signs Vital signs: Vital Signs Temp 98.9 F 03/04/23 07:54 Pulse 61 03/04/23 07:54 Resp 18 03/04/23 07:54 BP 148/83 03/04/23 07:54 Pulse Ox 95 03/04/23 07:54 FiO2 Intake & Output 03/03/23 03/04/23 03/04/23 18:59 06:59 18:59 Intake Total 2060 Output Total 301 2425 525 Balance 1759 -2425 -525 Weight 108.862 kg Intake: IV 500 Intake, IV Titration 1560 Amount Sodium Chloride 0.9% 1, 1560 000 ml @ 130 mls/hr IV . Q7H42M STA Rx#:[id number] Output: Urine 300 2425 525 Estimated Blood Loss 1 Other: Voiding Method Toilet Toilet Toilet Urinal Urinal Urinal - Constitutional General appearance: Present: no acute distress - Gastrointestinal General gastrointestinal: Present: soft. Absent: tenderness - Psychiatric Psychiatric: Present: A&O x's 3 - Labs CBC & Chem 7: 03/04/23 07:21 03/02/23 20:04 Labs: Abnormal Lab Results - Last 24 Hours (Table) 03/04/23 Range/Units 07:21 RBC 4.29 L (4.40-5.60) X 10*6/uL Hgb 12.5 L (13.0-17.0) d/dL Hct 37.8 L (39.6-50.0) % Assessment and Plan Assessment: status post bilateral stent insertion bilateral obstructive ureteral stones -Follow up on BMP, if there is improvement in his creatinine is okay for discharge from urology standpoint. He will be arranged for bilateral ureteroscopy with holmium laser as an outpatient
[2023-03-04 13:28] LABS: BUN/Creat Ratio 10.85 Ratio (12.00-20.00); Blood Urea Nitrogen 29.3 mg/dL (9.0-27.0); Calcium 8.3 mg/dL (8.7-10.3); Chloride 108 mmol/L (96-109); Glucose 121 mg/dL (70-110); Sodium 140 mmol/L (135-145)
--- NOTE | 2023-03-04 13:48 | P.DS ---
Providers Date of admission: 03/02/23 23:22 Expected date of discharge: 03/04/23 Attending physician: Jd Conway MD Consults: 03/02/23 23:20 Consult Physician Routine Consulting Provider: Tj Perez Consult Reason/Comments: kidney stone Do you want consulting provider notified?: Already Contacted Primary care physician: Domenica Pryor Hospital Course: Discharge Diagnosis: Acute kidney injury Obstructive uropathy Bilateral ureteral stones Hematuria Bilateral hydronephrosis Hospital Course: 52-year-old male with history of kidney stones presenting with abdominal pain, nausea, vomiting, hematuria. Labs showed BUN elevated at 32, creatinine elevated at 3.41, lipase mildly elevated at 308, urinalysis positive for blood, negative for nitrites, small leukocyte esterase. CT abdomen and pelvis showed moderate right-sided hydronephrosis with a string of calcifications measuring up to 8 mm spanning 4 cm long in the distal right ureter, mild left-sided hydronephrosis with a 4 mm stone in the upper left ureter, some renal calculi measuring up to 3 mm, hepatomegaly, small hiatal hernia. Urology consulted. Patient had cystoscopy with bilateral ureteral stents placed. Renal function improving. Patient being discharged home with follow-up with urology. Patient seen and examined at bedside. Vital signs reviewed and stable. General: nontoxic, no distress, appears at stated age Derm: warm, dry Head: atraumatic, normocephalic, symmetric Eyes: EOMI, no lid lag, anicteric sclera Mouth: no lip lesion, mucus membranes moist Cardiovascular: S1S2 reg, no murmur Lungs: CTA bilateral, no rhonchi, no rales , no accessory muscle use Abdominal: soft, nontender to palpation, no guarding, no appreciable organomegaly Ext: no gross muscle atrophy, no edema, no contractures Neuro: CN II-XI grossly intact, no focal neuro deficits Psych: Alert, oriented, appropriate affect A total of 33 minutes of time were spent preparing this complex discharge summary. Patient was discharged on 03/04/23 at 13:44. Patient Condition at Discharge: Stable Plan - Discharge Summary Discharge Rx Participant: No New Discharge Prescriptions: Discontinued Ibuprofen 600 mg PO Q8H PRN #20 tab PRN Reason: Pain Follow up Appointment(s)/Referral(s): Domenica Pryor DO [Primary Care Provider] - 1 Week Patient Instructions/Handouts: Kidney Stones (DC), Acute Kidney Injury (DC) Activity/Diet/Wound Care/Special Instructions: Please follow-up with PCP P. He will need a repeat kidney function test in 2-3 days. Continue oral fluids. Follow-up with urology. Discharge Disposition: HOME SELF-CARE
== END 2023-03-04 14:21 | disposition home or self-care (01) ==
LOC: EC 18:36 → INTOOBSV 23:22 → 4SSUR 23:22 → UNDODISIN 03-04 14:21
PROVIDERS: ADMIT Internal Medicine; ATTEND Internal Medicine
DX: N20.0 Calculus of kidney (principal); D73.5 Infarction of spleen; K27.9 Peptic ulcer, site unspecified, unspecified as acute or chronic, without hemorrhage or perforation; K37 Unspecified appendicitis; K55.9 Vascular disorder of intestine, unspecified; K56.609 Unspecified intestinal obstruction, unspecified as to partial versus complete obstruction; K57.92 Diverticulitis of intestine, part unspecified, without perforation or abscess without bleeding; K85.90 Acute pancreatitis without necrosis or infection, unspecified; N44.00 Torsion of testis, unspecified; R09.02 Hypoxemia; N13.6 Pyonephrosis; N17.9 Acute kidney failure, unspecified; Z87.442 Personal history of urinary calculi; G47.30 Sleep apnea, unspecified
CPT/HCPCS: 96361; 96374; 96375; 99285; 36415; 80053; 80048; 83605; 83690; 85025 ×2; 81001; 74176; 52332; G0378 ×3; C2625; C1769; J2250; J2405 ×2; J0690; J3010; J1885; J2704; J1170; J2001

== ENCOUNTER → 2023-03-15 | Outpatient (CLI) | payer OTHER ==
[2023-03-15 20:32] LABS: Basophils # (A) 0.08 X 10*3/uL (0.00-0.10); Eosinophils # (A) 0.37 X 10*3/uL (0.04-0.35); Eosinophils % (A) 4.5 %; HCT 42.7 % (39.6-50.0); Lymphocytes # (A) 2.29 X 10*3/uL (0.90-5.00); Lymphocytes % (A) 27.7 %; MCH 29.1 pg (27.0-32.0); MCHC 32.8 d/dL (32.0-37.0); MCV 88.8 FL (80.0-97.0); Mean Platelet Volume 10.6 FL (9.5-12.2); Monocytes # (A) 0.85 X 10*3/uL (0.20-1.00); Monocytes % (A) 10.3 %; NRBC Per 100 WBC 0 X 10*3/uL (0.00-0.01); Neutrophils # (A) 4.66 X 10*3/uL (1.80-7.70); Neutrophils % (A) 56.3 %; Platelet Count 274 X 10*3/uL (140-440); RBC 4.81 X 10*6/uL (4.40-5.60); RDW 12.2 % (11.5-14.5); WBC 8.27 X 10*3/uL (4.50-10.00)
[2023-03-15 20:44] LABS: Appearance,Urine Clear (Clear); Bilirubin,Urine Negative (Negative); Blood,Urine Large (Negative); Color,Urine Yellow (Yellow); Ketones,Urine Negative (Negative); Nitrite,Urine Negative (Negative); PH, Urine 5.5; Specific Gravity,Urine 1.017 (1.001-1.030); Urobilinogen,Urine 0.2 E.U./DL
[2023-03-15 20:58] LABS: Bacteria,Urine None Seen (None Seen)
[2023-03-15 21:06] LABS: Blood Urea Nitrogen 17.4 mg/dL (9.0-27.0); Calcium 9.7 mg/dL (8.7-10.3); Carbon Dioxide 26.8 mmol/L (21.6-31.8); Chloride 99 mmol/L (96-109); Glucose 122 mg/dL (70-110); Potassium 4.9 mmol/L (3.5-5.5); Sodium 137 mmol/L (135-145); Uric Acid Crystals,Urine Present
== END | disposition home or self-care (01) ==
LOC: LABPAT 13:23
PROVIDERS: ATTEND Urology
DX: Z01.812 Encounter for preprocedural laboratory examination (principal); N20.1 Calculus of ureter; R31.29 Other microscopic hematuria
CPT/HCPCS: 80048; 81001; 85025; 87086

== ENCOUNTER → 2023-03-22 | Day surgery (SDC) | payer OTHER ==
[2023-03-17 09:48] VITALS: BMI 35.7
[~2023-03-22] MED LIST changes: +DEXAMETHASONE SOD PHOSPHATE 4 MG/ML 1 ML VIAL IVP ONE; +HYDROmorphone (PF) 1 MG/ML ONE; +HYDROmorphone 0.5 MG/0.5 ML SYRINGE IVP PRN; +KETOROLAC 30 MG/ML 1 ML VIAL ONE; +LIDOCAINE 2% INJ 20 MG/ML (2 ML VIAL) ONE; +MIDAZOLAM 2 MG/2 ML VIAL IV PRN; +MIDAZOLAM 2 MG/2 ML VIAL ONE; +ONDANSETRON 4 MG/2 ML VIAL ONE; +PROPOFOL 10 MG/ML 20 ML VIAL IV ONE; +fentaNYL (PF) 50 MCG/ML 2 ML AMP ONE
--- NOTE | 2023-03-22 10:09 | XR ---
EXAMINATION TYPE: XR KUB DATE OF EXAM: 03/22/2023 10:05 AM INDICATION: Patient age:Male; 52 years old; Reason for study: Ureteral Stone N20.1; COMPARISON: 02/26/2021 TECHNIQUE: One radiographic view of the abdomen was obtained. FINDINGS: Bilateral ureteral stents with pigtail catheters both superiorly and inferiorly in appropri ate position. Ossific density projecting over the pelvis is unchanged and 21 and may represent phlebo lith. The bowel gas pattern is nonspecific without dilated loops of small or large bowel. There is no evidence for organomegaly or pneumoperitoneum. The osseous structures are intact. Fecal material a nd gas are demonstrated throughout the colon and rectum. Multilevel degeneration changes throughout the spine. Osteophyte formation of the hips bilaterally. IMPRESSION: 1. Bilateral ureteral stents with pigtail catheters both superiorly and inferiorly in appropriate po sition. No renal calculi definitively visualized. 2. Nonspecific bowel gas pattern without radiographic evidence for acute process.
--- NOTE | 2023-03-22 10:31 | P.HPIHPCON ---
History of Present Illness H&P Date: 03/22/23 This is a 52-year-old male with history of bilateral ureteral stones, he underwent bilateral stent insertion on March 03 due to bilateral ureteral obstructions and acute kidney injury. At that time he had evidence of multiple right-sided distal ureteral stone, and a 4 mm left-sided proximal stone. He presents today for the bilateral ureteroscopies with holmium laser to address his stone. The risk which includes but not limited to bleeding, infection, injury to the ureter. Risk of anesthesia was also discussed Consent for Procedure: I have explained the operation/procedure to the patient, including the risks, benefits, side effects, alternative therapies (including not receiving the proposed treatment or service), the likelihood of the patient achieving his/her goals, and potential recuperation problems for the procedure/sedation/analgesia, as well as any blood products, if indicated. I also explained to the patient the risks, benefits and side effects of the alternatives, as well as the risks related to not receiving the proposed procedure, care, treatment, or services. Past Medical History Past Medical History: Sleep Apnea/CPAP/BIPAP Additional Past Medical History / Comment(s): gout, kidney stones, USES C-PAP History of Any Multi-Drug Resistant Organisms: None Reported Past Surgical History: Orthopedic Surgery, Tonsillectomy Additional Past Surgical History / Comment(s): ACL surgery left knee. KIDNEY STONES WITH BILAT STENTS 03/03/23 Past Anesthesia/Blood Transfusion Reactions: No Reported Reaction Smoking Status: Never smoker - Past Family History Mother Family Medical History: Cancer Additional Family Medical History / Comment(s): colon Medications and Allergies Home Medications Medication Instructions Recorded Confirmed Type No Known Home Medications 03/17/23 03/22/23 History Allergies Allergy/AdvReac Type Severity Reaction Status Date / Time No Known Allergies Allergy Verified 03/22/23 10:13 Surgical - Exam - General no distress, moderate pain - Eyes normal ocular movement, no pale - ENT normal nares, normal mucosa - Respiratory normal expansion, normal respiratory effort - Abdomen Abdomen: soft, non tender - Psychiatric oriented to time, oriented to person, oriented to place Assessment and Plan Assessment: OR for bilateral ureteroscopy, holmium laser lithotripsy, stone basketing and stent removal
--- NOTE | 2023-03-22 12:08 | P.OP ---
Date of Procedure: 03/22/23 Preoperative Diagnosis: Bilateral ureteral and renal stones Postoperative Diagnosis: Same Procedure(s) Performed: Cystoscopy, bilateral ureteroscopy, holmium laser lithotripsy stone basketing and stent removal, Implants: none Anesthesia: ABRAHAMA Surgeon: Tj Perez Estimated Blood Loss (ml): 5 Pathology: other (Bilateral renal stones) Condition: stable Disposition: PACU Indications for Procedure: This is a 52-year-old male with history of bilateral ureteral stones, he underwent bilateral stent insertion on March 03 due to bilateral ureteral obstructions and acute kidney injury. At that time he had evidence of multiple right-sided distal ureteral stone, and a 4 mm left-sided proximal stone. He presents today for the bilateral ureteroscopies with holmium laser to address his stone. The risk which includes but not limited to bleeding, infection, injury to the ureter. Risk of anesthesia was also discussed Operative Findings: Large stone in the left renal pelvis, no stones either ureter, multiple stones in the right kidney Description of Procedure: Patient brought to the operating room, general anesthesia was induced. He was prepped and draped in sterile fashion and placed in dorsal lithotomy position. Cystoscopy fitted with 21-Scottish sheath was inserted per urethra, cystoscopy was performed which showed no abnormality within the bladder. The right stent was visualized and grasped and removed to the meatus. Next a sensor wire was advanced through the stent the stent was removed the wire in place. Next a semirigid ureteroscope was advanced per urethra and up the right ureteral orifice, the ureteroscope was advanced all the way up to the UPJ which showed no stones. Pullback ureteroscopy was performed which showed no injury to the ureter or any ureteral stones. Next under fluoroscopy 1113 Scottish access sheath was passed over the wire into the proximal ureter. Next a flexibile ureteroscope was inserted through the access sheath, renoscopy was performed which showed multiple small stones throughout the kidney. Using the holmium laser the stones were dusted, sizable fragments were basketed and sent for analysis. Repeat renoscopy showed no sizable stones or injury to the kidney, on fluoroscopy there was no evidence of any radiopaque densities. Pullback ureteroscopy was performed which showed no injury to the ureter or any ureteral stone. At this time attention was carried to the left side, the cystoscope was inserted per urethra, and the stent was grasped and removed. Next a semirigid ureteroscope was advanced through the urethra and up the left ureteral orifice, the scope was advanced all the way up to the UPJ which showed no stone along the course of the ureter, pullback ureteroscopy was performed which showed no injury to the ureter or any ureteral stones, as ureteroscope was withdrawn, a sensor wire was advanced through. Next an 1113 Scottish access sheath was passed over the wire into the proximal ureter. Next a flexible ureteroscope was inserted through the access sheath, renoscopy was performed which showed a large stone in the renal pelvis, using the laser the stone was dusted, sizable fragments were removed and sent for analysis. Repeat renoscopy showed no sizable stone or injury to the kidney, on fluoroscopy there is no other radiopaque densities. Pullback ureteroscopy was performed which showed no injury to the ureter or any ureteral stones. The bladder was emptied at the end of the case. Patient tolerated procedure well taken to recovery in stable condition
[2023-03-22 12:14] VITALS: TEMP 98.1
[2023-03-22 13:05] VITALS: RESP 14
--- NOTE | 2023-03-22 13:34 | FL ---
Intraoperative/procedural fluoroscopic services were provided for bilateral stones. Total fluoroscopy time is 7.4 seconds with a total of 3 submitted images to PACS. Total DAP 1.0641 Gycm2. Please see the operative note for further details.
[2023-03-22 13:47] VITALS: BP 138/74; PULSE 58
== END ==
LOC: OR 09:33
PROVIDERS: ATTEND Urology
DX: N20.2 Calculus of kidney with calculus of ureter (principal); G47.30 Sleep apnea, unspecified; Z80.0 Family history of malignant neoplasm of digestive organs; Z90.49 Acquired absence of other specified parts of digestive tract; Z98.890 Other specified postprocedural states
CPT/HCPCS: 82365; 74018; 52353; C1769; J2250; J1100; J0690; J2405; J3010; J1885; J1170; J2704; J2001